=== PATIENT | male | born 1935 | race Caucasian/White ===

== ENCOUNTER 2019-06-13 21:24 | Inpatient (IN) | payer OTHER, MEDICARE ==
[~2019-06-13] VITALS: Ht 180.3 cm; Wt 80.7 kg
[2019-06-13] MEDS ORDERED: MEMANTINE HCL5 MG PO (21:48)
[2019-06-13] MEDS ORDERED: FLOMAX0.4 MG PO (21:49)
[2019-06-13] MEDS ORDERED: PROBIOTIC1 EAC1 PO (21:49)
[2019-06-13] MEDS ORDERED: QUETIAPINE FUMA25 MG PO (21:49)
[2019-06-13] MEDS ORDERED: WARFARIN SODIU2.5 MG PO (21:50)
[2019-06-13] MEDS ORDERED: ACETAMINOPHEN500 MG PO (21:51)
[2019-06-13] MEDS ORDERED: LEVEMIR FL100 UNIT/2 SUB-Q (21:53)
[2019-06-13] MEDS ORDERED: LEVOTHYROXINE75 MCG PO (21:54)
[2019-06-13] MEDS ORDERED: HUMALOG100 UNITS/ SUB-Q (21:54)
--- NOTE | 2019-06-14 02:40 | NUR ---
PT ARRIVED TO FLOOR VIA STRETCHER 0232. 4PA TO SLIDE PT ON DRAW SHEET TO BED. WHEN ROLLING PT TO REMOVE SHEETS UNDER HIM HE BECAME COMBATIVE AND STARTED KICKING AND SWINGING AT STAFF. PT SETTLED DOWN AND TUCKED INTO BED. THIS RN PLACE BP CUFF ON PT AND HE AGAIN BECAME AGITATED AND WOULD NOT CALM DOWN. UNABLE TO OBTAIN VS AT THIS TIME D/T PATIENT AGITATION AND SAFETY OF STAFF. PT'S IS IN ROOM WITH PT AT THIS TIME, CALL LIGHT IS CLOSE.
--- NOTE | 2019-06-14 03:30 | NUR ---
PT BENT HIS ARM AND IV IS BEEPING, PT'S WAS ABLE TO STRAIGHTEN ARM. IV IS NOW INFUSING.
--- NOTE | 2019-06-14 03:45 | NUR ---
PT'S IV WAS BEEPING, PT'S ASSISTED TO STRAIGHTEN HIS ARM. STARTED IV AND IT IS NOW INFUSING FINE.
--- NOTE | 2019-06-14 04:25 | NUR ---
IV CONTINUING TO BEEP FOR DISTAL OCCLUSION. ATTEMPTED TO ASSESS, PT RAISED ARM ABUPTLY TOWARDS THIS RN AND STATED, "GET THE HELL AWAY FROM ME, DON'T TOUCH ME". THIS RN ATTEMPTED TO EXPLAIN TO THE PT WHY I NEEDED TO SEE HIS IV. AT BEDSIDE ATTEMPTED TO CALM PT DOWN AND ASKED PT TO PLACE ARM STRAIGHT, HOWEVER, PT CONTINUED WITH INCREASED AGITATION AND TOLD HIS "GET THE HELL OUT OF THE ROOM, DON'T TOUCH ME". PT APPEARS VERY CONFUSED, AGITATED AND UPSET BY ANY NURSING INTERACTIONS INVOLVING DIRECT PT CARE. PT REFUSED MULTIPLE TIMES TO ALLOW THIS RN TO MOVE HIS ARM AND OR ASSESSS HIS IV SITE. PT STATED HE DID NOT WANT ANYONE TOUCHING HIM. THIS RN, CHARGE, RN YOLY AND DHAVAL AT BEDSIDE WITH ME PT HAS BEEN FREQUENTLY COMBATIVE TOWARDS STAFF THUS FAR IN SHIFT. STATES SHE CANNOT GET HIM TO LISTEN TO HER AND SINCE HIS FALL APPROX 1 WEEK AGO PT'S MENTATION HAS CHANGED AND HE IS EASILY AGITATED.
--- NOTE | 2019-06-14 05:23 | NUR ---
PT SLEEPING SOUNDLY, RESP EVEN AND NON LABORED. AT BEDSIDE. CALL LIGHT WITHIN REACH.
--- NOTE | 2019-06-14 05:25 | NUR ---
A&O TO SELF. AGITATED WITH STAFF AND . RA. IV FLUIDS/ABX. HEAVY ASSIST TRANSFER, UNABLE TO STAND UPON ADMIT TO THIS FLOOR. BED ALARM INTACT.
--- NOTE | 2019-06-14 07:43 | NUR ---
0715: Pt assisted back to his bed from the [facility]. He appears in no distress and denies pain at this time. His remains in the room with the pt and the bed alarm is on and the call martínez within reach.
--- NOTE | 2019-06-14 09:28 | NUR ---
PATIENT WAS ON CLEAR LIQ. HIS INTAKE WAS 400 ML. HE WENT NPO AROUND 7AM THIS MORNING.
--- NOTE | 2019-06-14 09:36 | NUR ---
PT RESTING IN HIS BED AND COMPLAINS OF SOME BACK PAIN AND WAS GIVEN A WARM BLANKET FOR IT. THE PT'S STATES THIS NORMAL FOR HIM BUT IS A BIT MORE SINCE HIS FALL AT HOME. THE FACE SCALE SHOWS A 3/10 WHICH THE PT'S DENIES ANY NEED FOR PAIN MEDICATION AT THIS TIME. SEE ASSESSMENT. CALL ANDERSON WITHIN REACH, BED ALARM IS ON, PT'S REMAINS AT THE BEDSIDE.
--- NOTE | 2019-06-14 09:36 | CONS ---
[facility] [address], [place] [address] Signed DATE OF CONSULTATION: 06/14/2019 CHIEF COMPLAINT: Generalized abdominal pain. HISTORY OF PRESENT ILLNESS: Thuan is an 84-year-old gentleman who unfortunately has worsening dementia over the last several weeks. His house in [place] to [place] [facility]. He more or less needs 24-hour observation at this point. About a week ago, he had fell and seemed to make his mental status worse. He has been combative as well. There was some concern about the generalized abdominal pain. This was 1 week ago. Apparently, there was no loss of consciousness. In the meantime, he went to see his primary care provider, Dr. Ambrosio Bernstein at the [facility]. He was examined and had him walk up and down the hallways, and apparently felt things were fine and no imaging studies have been ordered. His and caregivers brought him to the emergency room yesterday evening. In the emergency room, there was some concern he might have some mild abdominal tenderness. He is clearly demented. His white count was normal. His BUN and creatinine were elevated with a baseline creatinine around 1.5, now 2.15. INR was up at 3.1. Chest x-ray was unremarkable other than the aortic valve replacement. 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 CT scan of the pelvis shows a couple of pancreatic cyst in the diverticulosis without any evidence of inflammation. There seems to be a trace amount of pneumoperitoneum. Consequently, I was asked to admit him as a general surgeon on-call. He has been hydrated overnight, but he does get confused easily. Thankfully, his has been with him through the night. PAST MEDICAL HISTORY: Dementia, insulin-dependent diabetes, hypothyroidism, atrial fibrillation, hypertension, cholelithiasis, small hiatal hernia, diverticulosis, he had a pelvic fracture, clavicular fracture, and pneumothorax from a fall on his ladder in 2013. 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 He had a terrible ruptured appendix at age 9 and they were unsure he was going to live. He also had right inguinal hernia repair. SOCIAL HISTORY: Does not smoke or drink. He lives with his , who is age 67 at [phone]. She continues to work as a showcase maker. Dr. Ambrosio Bernstein is his primary care provider. They have moved out of their house in [place] down to [facility] here in [place], [place]. He needs quite a bit of observation throughout the day. They have two children. He no longer drives. Electronically Signed By: QUINTIN JULIAN MD 06/14/19 0936 PATIENT NAME: THUAN STINSON CONSULTATION DATE OF : 33 REPORT #: [id number] PHYSICIAN: QUINTIN JULIAN MD PCP: NO PRIMARY CARE PHYSICIAN REPORT IS CONFIDENTIAL AND NOT TO BE RELEASED WITHOUT AUTHORIZATION [facility] [address] [place], [place] [address] Signed FAMILY HISTORY: Not reviewed. REVIEW OF SYSTEMS: I went through 10 systems with his and she was very helpful. ALLERGIES: Opioids including morphine and also penicillin, sulfa, and trazodone. MEDICATIONS: Memantine, probiotic, quetiapine, Flomax, Coumadin, Tylenol, insulin, and levothyroxine. PHYSICAL EXAMINATION: VITAL SIGNS: Blood pressure is 137/50, heart rate 68, respiratory rate 16, temperature is 98.2, and he is 99% on room air. He is 5 feet 11 inches at 80 kg. GENERAL: Thuan is an 84-year-old gentleman lying supine in his hospital bed. His is in the room along with our nurse. He does not appear systemically ill or toxic. He is clearly demented and looks to his frequently for answers. He is easily reoriented and seems to be cooperative at this time, particularly with his present. He does not appear systemically ill or toxic. LUNGS: Generally clear to auscultation. HEART: Regular rate and rhythm with a metallic click. ABDOMEN: Soft and flat. There is some initial subjective mild tenderness diffusely, but he was easily distracted and did not seem to have any tenderness afterwards, certainly no peritonitis. I see his vertical right lower quadrant incision from an appendectomy when he was 9 years old. It is well healed at this time. No obvious hernia there. LABORATORY DATA: His white blood count is 7.7, neutrophils 73, and hemoglobin 12.7. BUN 62, creatinine 2.15, glucose 260. Urinalysis negative. INR is 2.1. Liver function tests are negative. Albumin is 3.8. IMAGING DATA: Chest x-ray shows the aortic valve replacement in his sternal wires. The CT scan of the head shows an old lacunar infarct and some mild ischemic changes, but nothing acute. CT scan of abdomen and pelvis shows the two pancreatic cysts along with diverticulosis, but no obvious inflammation and then trace pneumoperitoneum. ASSESSMENT AND PLAN: Thuan is an 84-year-old gentleman with clearly worsening dementia and having moved from his home to [employer]. Unfortunately, fell last week that seemed what made his mental status worse. At this point, it seems like his abdominal exam is relatively unremarkable. Although, the CT scan does show some trace pneumoperitoneum. It Electronically Signed By: QUINTIN JULIAN MD 06/14/19 0936 PATIENT NAME: THUAN STINSON CONSULTATION DATE OF : 33 REPORT #: [id number] PHYSICIAN: QUINTIN JULIAN MD PCP: NO PRIMARY CARE PHYSICIAN REPORT IS CONFIDENTIAL AND NOT TO BE RELEASED WITHOUT AUTHORIZATION [facility] [address] [place], [place] [address] Signed certainly could be from his diverticular disease. Would not be from an ulcer that would be within hours. He would have been in serious pain. His white count is normal and he has no fever. Overall, he seems fairly comfortable. I think at this point, we are going to keep him on conservative treatment. We will have our medical service see him to help with his medical management. I reviewed all this with his and in detail. Of course, he represents increased surgical risks it if he would need surgery. At this point, she would like him to be a full code, but no tube feeds and no heroic measures. They have expressed understanding and agreed above plan. Quintin Julian MD ALB/MODL /[id number] cc: MD Quintin Byrd MD Copies: AMBROSIO BERNSTEIN MD, ANDREW L MD ~ Electronically Signed By: QUINTIN JULIAN MD 06/14/19 0936 PATIENT NAME: THUAN STINSON CONSULTATION DATE OF : 33 REPORT #: [id number] PHYSICIAN: QUINTIN JULIAN MD PCP: NO PRIMARY CARE PHYSICIAN REPORT IS CONFIDENTIAL AND NOT TO BE RELEASED WITHOUT AUTHORIZATION
--- NOTE | 2019-06-14 09:47 | NUR ---
cbg 141.
--- NOTE | 2019-06-14 10:43 | NUR ---
PT HELPED BACK TO BED FOLLOWING ATTEMPTING TO HAVING A BM WITH NO SUCCESS. RT AT BEDSIDE DOING AN EKG AT THIS TIME.
--- NOTE | 2019-06-14 12:37 | NUR ---
patient is requesting a second opinion on the reading of the CT scan. They signed a release of information and were given the ct scan results. called hector in ct to see if Dr Pompa would read it and was informed they don't do that unless the doctor requests it.
--- NOTE | 2019-06-14 13:10 | NUR ---
SPOKE WITH PATIENT AND IN ROOM. PATIENT UP IN CHAIR. PATIENT HAS DEMENTIA AND IS NOT ABLE TO ANSWER QUESTIONS. PATIENT IS VERY TALKATIVE THOUGH AND ENJOYS VISITING, BUT WORDS ARE SCRAMBLED AND WITHOUT STRUCTURE IN SENTENCES MOSTLY. IS ABLE TO ANSWER QUESTIONS. PATIENT WAS A ADMISSIONS COUNSELOR. THEY BOTH LIVE IN APARTMENT AT [facility], SHE STILL WORKS, AND HE STAYS WITH THE [employer]. SHE DRIVES. HIS PCP IS IN [place] [place]. IT IS THEIR INTENTION TO RETURN THERE AT DISCHARGE. SHE STATES HE DOES NOT USE DME FOR AMBULATION YET. SHE STATES HE GETS AROUND WELL IN HIS OWN ENVIRONMENT. SHE DENIES NEEDS AT THIS TIME FOR DISCHARGE. SHE WILL LET STAFF KNOW IF SOMETHING COMES UP SHE IS CONCERNED ABOUT. WILL FOLLOW NEEDED.
--- NOTE | 2019-06-14 13:24 | NUR ---
PT RESTING IN HIS CHAIR WITH HIS FEET ELEVATED AND HE APPEARS COMFORTABLE AND DENIES ANY PAIN AT THIS TIME.
--- NOTE | 2019-06-14 16:37 | NUR ---
Pt had a medium formed stool and was helped back to his bed. Bed alarm is on.
--- NOTE | 2019-06-14 16:41 | NUR ---
Pt resting in his bed with no complaints of pain or nausea. Pt's remains in the room with the pt.
--- NOTE | 2019-06-14 17:09 | EKG ---
[facility] [address] [facility] [place] [address] Signed Atrial fibrillation with premature ventricular or aberrantly conducted complexes Possible Anterior infarct , age undetermined Abnormal ECG No previous ECGs available Confirmed by ELOY LEDEZMA MD ([id number]) on 06/14/2019 5:09:40 PM Electronically Signed By: ELOY LEDEZMA MD 06/14/19 1709 PATIENT NAME: THUAN STINSON Electrocardiogram DATE OF : 33 PHYSICIAN: ELOY LEDEZMA MD REPORT #: [id number] REPORT IS CONFIDENTIAL AND NOT TO BE RELEASED WITHOUT AUTHORIZATION
--- NOTE | 2019-06-14 17:10 | EKG ---
[facility] [address] [facility] [place] [address] Signed Atrial fibrillation with premature ventricular or aberrantly conducted complexes Abnormal ECG When compared with ECG of 13-JUN-2019 21:58, (Unconfirmed) Nonspecific T wave abnormality no longer evident in Inferior leads Confirmed by ELOY LEDEZMA MD ([id number]) on 06/14/2019 5:10:22 PM Electronically Signed By: ELOY LEDEZMA MD 06/14/19 1710 PATIENT NAME: THUAN STINSON Electrocardiogram DATE OF : 33 PHYSICIAN: ELOY LEDEZMA MD REPORT #: [id number] REPORT IS CONFIDENTIAL AND NOT TO BE RELEASED WITHOUT AUTHORIZATION
--- NOTE | 2019-06-14 17:24 | NUR ---
MED REC COMPLETED USING FACILITY MAR AND INTERVIEW WITH PATIENT'S .
--- NOTE | 2019-06-14 19:35 | NUR ---
SHIFT REPORT RECIEVED FROM ANDRES MENCHACA. PT RESTING IN BED, EYES CLOSED. RR 16, EVEN, UNLABORED. IN ROOM, CALL LIGHT IN REACH, BED RAILS UP, BED ALARM ON.
--- NOTE | 2019-06-14 20:34 | NUR ---
CAGE MANAGER ROUNDING NOTE. PT RESTING IN BED WITH EYES CLOSED. DOES NOT WAKE WHILE FATBACK TRIMMER IN ROOM. PT'S SLEEPING ON COUCH. CALL LIGHT IN REACH. WHITE BOARD UDPATED.
--- NOTE | 2019-06-14 21:28 | NUR ---
PT AWAKE IN BED, IN ROOM. PT ORIENTED TO PERSON BUT NOT PLACE, TIME OR EVENT. RAILS UP, BED ALARM ON. PT DENIES PAIN OR NAUSEA. EDMEA NOTED BLE, GENERALIZED. ABRASIONON LEFT KNEE. BRIEFS IN PLACE. IV CDI, WNL, FLUSHED WELL, WRAPPED WITH GAUZE ROLL AND KOBAN. NO OTHER NEEDS, CALL LIGHT IN REACH.
--- NOTE | 2019-06-14 22:29 | NUR ---
IV PUMP ALARMING. ARM UNWRAPPED. IV CDI, WNL, FLUSHED WELL. ARM WRAPPED IN TOWEL AND KOBAN. ALARM RESOLVED. NO OTHER NEEDS. CALL LIGHT IN REACH, IN ROOM.
--- NOTE | 2019-06-15 00:17 | NUR ---
PT RESTING IN BED, EYES CLOSED. RR 16, EVEN, UNLABORED. IN ROOM. CALL LIGHT IN REACH.
--- NOTE | 2019-06-15 02:23 | NUR ---
PT RFESTING IN BED, EYES CLOSED. RR 18, EVEN, UNLABORED. IN ROOM. CALL LIGHT IN REACH.
--- NOTE | 2019-06-15 04:28 | NUR ---
PT CALLS FOR ASSISTANCE. PT ASSISTED TO THE BR AND BACK TO BED. ATTENDS IN PLACE. PT ORIENTED TO PERSON ONLY. PT SLIGHTLY IRRITABLE. ASSESSMENT COMPLETED. NEW BAG OF IV FLUIDS PROVIDED. WARM BLANKETS PROVIDED TO PT AND . IV SITE RE-WRAPPED AFTER ASSESSMENT. NO OTHER NEEDS, CALL LIGHT IN REACH, BED ALARM ON, RAILS UP.
--- NOTE | 2019-06-15 05:17 | NUR ---
PT HAS SLEPT OFF AND ON THIS SHIFT. PT HAS BEEN CONFUSED TO ALL BUT PERSON. STAYED IN ROOM. IV COVERED WITH A TOWEL WRAPPED IN MARI BANDAGE. IV CDI, WNL, FLUSHED WELL. PT TOLERATED MEDS AND IV FLUIDS WELL. GENERALIZED EDEMA IN BLE. VSS, UO SUFFICIENT. PT COMPLAINS OF LOWER BACK PAIN, HE AND DECLINE PAIN MEDS. CBG MANAGED WITH PRN INSULIN. BED ALARMS AND RAILS USED FOR SAFETY.
--- NOTE | 2019-06-15 06:07 | NUR ---
PT RESTING IN BED, EYES CLOSED. RR 14, EVEN, UNLABORED. IN ROOM. CALL LIGHT IN REACH, RAILS UP, BED ALARM ON.
--- NOTE | 2019-06-15 06:31 | NUR ---
SCHEDULED MED PROVIDED. NO OTHER NEEDS, CALL LIGHT IN REACH. BED ALARM ON, RAILS UP.
--- NOTE | 2019-06-15 07:42 | NUR ---
0658: Report recieved from Aura MENCHACA. Pt sleeping at this time, bed alarm is on.
--- NOTE | 2019-06-15 08:56 | NUR ---
PT RESTING IN HIS CHAIR WATCHING CARTOONS WITH HIS . HE APPEARS IN NO DISTRESS AND DENIES ANY PAIN. CALL ANDERSON WITHIN REACH. BED ALARM TO BE PLACED.
--- NOTE | 2019-06-15 09:05 | NUR ---
FAMILY AND PATIENT REFUSED THE CHAIR ALARM THE NURSE RECCOMENDED WILL INFORM NURSE, AND LEFT ALARM IN ROOM
--- NOTE | 2019-06-15 09:53 | NUR ---
CAME IN TO DO PATIENT'S VITALS AND I AND O. HIS NEEDED TO GO TO HER CAR AND GET SOME THINGS SO SHE ASKED ME IF I COULD STAY A FEW MINUTES TO WATCH HIM UNTIL SHE GOT BACK. PATIENT IS SLEEPING. HE MIGHT DO A SHOWER SOMETIME THIS AFTERNOON.
--- NOTE | 2019-06-15 10:31 | NUR ---
PT RESTING IN BED WITH NO COMPLAINTS. HIS REMAINS IN THE ROOM AND IS ASSISTING HIM IN ORDERING LUNCH AT THIS TIME.
--- NOTE | 2019-06-15 13:26 | NUR ---
PT WORKING WITH PHYSICAL THERAPY AT THIS TIME.
--- NOTE | 2019-06-15 13:46 | NUR ---
PT RESTING IN HIS CHAIR WITH THE ALARM ON AND HIS IN THE ROOM. PT APPEARS IN NO DISTRESS AND DENIES ANY PAIN. HE ATE ABOUT 95% OF HIS REGULAR DIET LUNCH WITHOUT ANY COMPLICATIONS. ABD SOUNDS ARE ACTIVE IN ALL QUADS AT THIS TIME. SEE ASSESSMENT.
--- NOTE | 2019-06-15 17:58 | NUR ---
Pt becoming agitated with staff and his . He was moved from the chair and right away wanted back to his chair which was done. Pt unable to state any problems but did settle down with some pudding which his states he likes. Pt medicated as ordered, see chelsir.
--- NOTE | 2019-06-15 18:14 | NUR ---
PT AGAIN BECAME AGITATED AND IS PULLING ON HIS IV. WHEN ASKED IF I CAN HELP HIM AND ATTEMPTED TO REWRAP HIS IV HE YELLS AT ME TO NOT TOUCH HIM. THE PT'S ATTMEPTED TO CALM HIM DOWN AND HE YELLED AT HER THAT HE "HATE IT WHEN YOU DO THAT". PT GOT UP AND FAILS HIS ARMS AND AGAIN YELLS TO LEAVE HIM ALONE. PT NOW WALKING IN THE HALLS WITH ANOTHER STAFF MEMBER AND HIS . PT WAS GIVEN HIS SEROQUEL NIGHTLY DOSE AND DR SU WAS CALLED AND NOTIFIED WELL DR JULIAN. PT CONITINUES AMBULATING IN THE HALLS AT THIS TIME. WILL CONTINUE TO MONITOR.
--- NOTE | 2019-06-15 18:51 | NUR ---
PT NOW SITTING ON HIS BEDSIDE AND IS NO LONGER YELLING AND APPEARS TO BE CALMING DOWN. PT'S REMAINS AT THE BEDSIDE.
--- NOTE | 2019-06-15 19:06 | NUR ---
DIDN'T GET PATIENT'S SIX O CLOCK VITALS DO TO HIM BEING AGITATED. NURSE AND CHARGE NURSE NOTIFIED.
--- NOTE | 2019-06-15 19:11 | NUR ---
WE HAD A PLAN DO GET HIM IN THE SHOWER TODAY AND WE LEFT UP TO HIM. I DID ASK A COUPLE OF TIMES.
--- NOTE | 2019-06-15 19:30 | NUR ---
pt's CALLED, REPORTED THAT pt IS HAVING PAIN. pt RESTLESS IN BED. COMPLAINING ABOUT HIS STOMACH. WILL CALL MD FOR PO PAIN MEDS.
--- NOTE | 2019-06-15 19:45 | NUR ---
CALLED DR JULIAN UPDATED ON STATUS, ORDERED PO TYLENOL. NEW ORDER ENTERED.
--- NOTE | 2019-06-15 19:50 | NUR ---
pt SITTING ON SIDE OF BED, AGITATED. UNABLE TO GIVE DATE OF . YELLING AT , MORELIA. MORELIA AGREED TO LEAVE THE ROOM. pt CALMED DOWN. PO MEDICATION GIVEN. BLOOD SUGAR CHECKED. IV MED GIVEN FOR NAUSEA. ASSESSMENT DONE. VITALS RECORDED. pt UP AND AMBULATING IN THE [place] FOR A FEW LAPS.
--- NOTE | 2019-06-15 20:10 | NUR ---
SPOKE WITH . AGREEABLE TO LEAVE FOR A FEW HOURS TO SEE IF IT WILL HELP CALM THE pt. DISCUSSED DEMENTIA AND CHANGES SEEN WHEN PATIENTS ARE IN THE HOSPITAL. ALL QUESTIONS ANSWERED. pt CONTINUES TO YELL AT EVERYTIME HE SEE'S HER. pt 1:1 WITH STAFF MEMBER.
--- NOTE | 2019-06-15 20:54 | NUR ---
ASSISTANT MANAGER/EMBALMER ROUNDING NOTE. ANNETTECARLIE AMBULATED WITH PT IN THE MIRAMONTES. PT REPORTS FEELING TIRED. PT'S HAS GONE HOME TO REST FOR A COUPLE OF HOURS. PT EXPRESSES FRUSTRATION WITH HIS , EASILY REDIRECTABLE. PT WALKED TO HIS ROOM. ASSISTED TO LAY DOWN IN BED. PT FELL ASLEEP EASILY. BED ALARM IN PLACE. CALL LIGHT IN REACH. WHITE BOARD UPDATED.
--- NOTE | 2019-06-15 22:06 | NUR ---
CALLED FOR AN UPDATE. MORELIA STATED "I THINK I WON'T STAY THE NIGHT" ALL QUESTIONS ANSWERED.
--- NOTE | 2019-06-15 22:34 | NUR ---
THIS RN IN TO SIT 1:1 WITH pt. pt SWITCHING SUBJECTS MID SENTENCE. CONCERNED ABOUT CLEANING THINGS. LAYING IN BED. WARM BLANKET APPLIED TO KNEE. pt COMPLAINED OF PAIN EARLIER BUT NOW DENIES PAIN. BED ALARM ON. LIGHTS DIMMED FOR COMFORT.
--- NOTE | 2019-06-15 23:17 | NUR ---
ANDRES RN IN TO RELIEVE THIS RN FOR 1:1. pt SITTING ON COUCH FOLDING CLOTH. REPORTED BEING TIRED BUT DOES NOT WANT TO GO TO BED A THIS TIME.
--- NOTE | 2019-06-15 23:40 | NUR ---
THIS RN TO ROOM FOR 1:1. pt RESTING IN BED. RESTLESS. UP TO VOID. LARGE VOID. BACK TO BED. SETTLED. WARM BLANKET APPLIED. BED ALARM ON.
--- NOTE | 2019-06-16 00:30 | NUR ---
pt RESTING IN BED, BED ALARM ON.
--- NOTE | 2019-06-16 02:00 | NUR ---
PATIENT IS SLEEPING.
--- NOTE | 2019-06-16 03:20 | NUR ---
pt USED CALL LIGHT "I'M WORKING!" THIS RN TO ROOM. pt ATTEMPTING TO GET OUT OF BED. STATED "I DON'T KNOW WHERE ALL THE WATER IS COMING FROM" BED SATURATED, DEPENDS SATURATED. pt BATHED. BED CLEANED, FRESH LINENS. pt ABLE TO SIT ON TOILET AND VOID. BACK TO BED. WARM BLANKET APPLIED. BED ALARM ON. CALL LIGHT WITHIN REACH.
--- NOTE | 2019-06-16 05:00 | NUR ---
pt CALLED. ATTEMPTING TO GET OUT OF BED. pt WOULD NOT BE PURSUADED TO USE TO TOILET OR TO TAKE HIS MEDICATIONS OR VITALS. WALKED WITH pt IN THE MIRAMONTES. pt ADAMENT THAT THIS BUILDING BELONGED TO HIM "DO YOU PAY RENT? THIS IS NOT WHAT THIS BUILDING WAS MEANT TO BE. IT WAS SUPPOSED TO BE A PLACE WHERE FAMILIES COULD DO... THE THING!" pt CONTINUED TO SPEAKING IN LOUDER TONES AND ENTER OTHER pts ROOMS. BERNARDA CAMPOS SITTING WITH pt 1:1.
--- NOTE | 2019-06-16 06:47 | NUR ---
LAB DRAW COMPLETED. pt RESTING IN CHAIR, EYES CLOSED,
--- NOTE | 2019-06-16 08:27 | NUR ---
DID PATIENT'S BLOOD SUGAR CHECK. PATIENT IS SITTING IN HIS CHAIR ASLEEP. BREAKFAST MEAL IN FRONT OF HIM.
--- NOTE | 2019-06-16 08:50 | NUR ---
PT SITTING IN HIS CHAIR EATING BREAKFAST AT THIS TIME AND HE APPEARS IN NO DISTRESS. CALL ANDERSON WITHIN REACH, IN THE ROOM AND CHAIR ALARM IS ON. ABD SOUNDS ACTIVE IN ALL QUADS.
--- NOTE | 2019-06-16 10:04 | DS ---
[facility] [address], [place] [address] Signed ADMISSION DATE: 06/14/2019 DISCHARGE DATE: 06/15/2019 FINAL DIAGNOSES: 1. Constipation. 2. Generalized abdominal pain. 3. Trace pneumoperitoneum. 4. Diverticulosis. PROCEDURES PERFORMED: 1. CT scan of abdomen and pelvis. 2. Chest x-ray. 3. CT head. HISTORY OF PRESENT ILLNESS: Thuan is an 84-year-old gentleman whose Alzheimer's dementia has been getting worse for the last few months. His moved him out of their [place] to [facility] here in [place], [place]. He has to be under 24-hour observation. His continues to work. She is age 66 currently. She has been very supportive. He had fallen about a week prior to admission. He had been to his primary care provider. He was examined and ambulated in the office, seemed to be doing fine. No radiographic studies were performed. He was allowed to go home. Later, he was complaining of some generalized abdominal pain. He was brought to the local emergency room by the [facility] staff and his . His vital signs were fine. His white count was normal, but the CT scan showed some trace pneumoperitoneum up around the stomach. There was no obvious perforated ulcer. He does have diverticulosis. CT scan of the head showed old issues and chest x-ray was unremarkable. I have been asked to admit him as a general surgeon on-call. HOSPITAL COURSE: Thuan was admitted as above and initially given some Rocephin and Flagyl. Overall, he did well during the day, but at night of course, he has sundown syndrome and even with the Seroquel, he had some troubles with that. He is very pleasant to talk to during the day. He tolerated his diet and actually had several good bowel movements. He has been ambulating around the hallways. His abdominal exam has remained quite benign. His white blood cell count has remained normal. His INR continues to run a little high just over 3 consistent with his metallic aortic valve replacement. EKG showed his atrial fibrillation. I have had multiple discussions with Thuan and his . I think at this point, he seems to be doing fine. We are going to allow him to go back home to [facility]. Electronically Signed By: QUINTIN BLAIR MD 06/16/19 1004 PATIENT NAME: THUAN STINSON DISCHARGE SUMMARY DATE OF : 33 REPORT #: [id number] PHYSICIAN: QUINTIN BLAIR MD PCP: NO PRIMARY CARE PHYSICIAN REPORT IS CONFIDENTIAL AND NOT TO BE RELEASED WITHOUT AUTHORIZATION [facility] [address], [place] [address] Signed DISCHARGE PLANS AND MEDICATIONS: Thuan is going to be discharged back to [facility] today. He can resume his regular diet. He can resume all his chronic medications. There has been no changes to his medications. He can shower and bathe as usual. His did ask about a support group. This is Monday, so we will leave a note for to give her a call and see if there is an Alzheimer's support group in the area. They can follow up in my office as needed. They can follow up with their primary care provider as usual. Quintin lBair MD ALB/MODL /[id number] cc: MD Chris Gonzalez MD Copies: QUINTIN BLAIR MD, MARK D MD ~ Electronically Signed By: QUINTIN BLAIR MD 06/16/19 1004 PATIENT NAME: THUAN STINSON DISCHARGE SUMMARY DATE OF : 33 REPORT #: [id number] PHYSICIAN: QUINTIN BLAIR MD PCP: NO PRIMARY CARE PHYSICIAN REPORT IS CONFIDENTIAL AND NOT TO BE RELEASED WITHOUT AUTHORIZATION
--- NOTE | 2019-06-16 10:26 | NUR ---
DISCHARGE INSTRUCTIONS GIVEN TO THE PT'S WITH UNDERSTANDING STATED. IV PULLED IN WHICH THE PT BECAME VERY UPSET AND HE STARTED HITTING. WITH THE AID OF THE PT'S AND STAFF THE IV WAS DC'D AND TIP INTACT. NO VITAL SIGNS WERE CHECKED DUE TO THE PT'S STATUS WHICH WAS CLEARED WITH DR KAISER.
--- NOTE | 2019-06-16 10:30 | NUR ---
STAFF NOTIFIED AT [facility] OF THE DISCHARGE. DC INSTRUCTIONS FOR [facility] SENT WITH THE PT'S .
--- NOTE | 2019-06-16 15:56 | NUR ---
BEFORE HE LEFT THIS MORNING. HE TOOK A QUICK SHOWER. PUT HIM IN A GOWN AND [facility] A RO[facility]. THE NURSE AND I WHEELED HIM OUT AND HELPED HIM GET IN HIS CAR.
== END 2019-06-16 10:49 | DRG 392 ==
LOC: ED 21:24 → MS 21:26
PROVIDERS: ADMIT Colon & Rectal Surgery
DX: K59.00 Constipation, unspecified (principal); K86.2 Cyst of pancreas; N17.9 Acute kidney failure, unspecified; F05 Delirium due to known physiological condition; K57.90 Diverticulosis of intestine, part unspecified, without perforation or abscess without bleeding; G30.9 Alzheimer's disease, unspecified; F02.80 Dementia in other diseases classified elsewhere, unspecified severity, without behavioral disturbance, psychotic disturbance, mood disturbance, and anxiety; E11.22 Type 2 diabetes mellitus with diabetic chronic kidney disease; I12.9 Hypertensive chronic kidney disease with stage 1 through stage 4 chronic kidney disease, or unspecified chronic kidney disease; K66.8 Other specified disorders of peritoneum; N18.9 Chronic kidney disease, unspecified; N40.0 Benign prostatic hyperplasia without lower urinary tract symptoms; E03.9 Hypothyroidism, unspecified; I48.91 Unspecified atrial fibrillation; Z95.2 Presence of prosthetic heart valve; Z88.5 Allergy status to narcotic agent; Z88.2 Allergy status to sulfonamides; Z88.0 Allergy status to penicillin; Z88.8 Allergy status to other drugs, medicaments and biological substances; Z79.01 Long term (current) use of anticoagulants; Z79.4 Long term (current) use of insulin; Z79.899 Other long term (current) drug therapy
CPT/HCPCS: 36415; 70450; 71045; 74176; 80048; 80053; 81001; 83735; 84100; 84134; 85025; 85610; 93005; 93010; 96361; 96374; 96375; 97112; 97116; 97162; 99285-25; C9113; G0378; J0610; J0696; J1815; J2405; J7030; J7121

== ENCOUNTER 2021-02-12 18:42 | Emergency (ER) | payer OTHER, MEDICARE ==
[~2021-02-12] VITALS: Ht 180.3 cm; Wt 84.2 kg
[~2021-02-12 18:42] MED LIST: ACETAMINOPHEN500 MG PO; FLOMAX0.4 MG PO; HUMALOG100 UNITS/ SUB-Q; LEVEMIR FL100 UNIT/2 SUB-Q; LEVOTHYROXINE75 MCG PO; MEMANTINE HCL5 MG PO; PROBIOTIC1 EAC1 PO; QUETIAPINE FUMA25 MG PO; WARFARIN SODIU2.5 MG PO
[2021-02-12] MEDS ORDERED: DONEPEZIL HCL10 MG PO (19:22)
[2021-02-12] MEDS ORDERED: LOSARTAN POTASS50 MG PO (19:22)
== END 2021-02-12 22:40 | disposition home or self-care (01) ==
LOC: ED 18:42
DX: U07.1 COVID-19 (principal); E11.9 Type 2 diabetes mellitus without complications; I10 Essential (primary) hypertension; E03.9 Hypothyroidism, unspecified; Z79.4 Long term (current) use of insulin; I48.91 Unspecified atrial fibrillation; Z88.0 Allergy status to penicillin; Z88.2 Allergy status to sulfonamides; Z88.5 Allergy status to narcotic agent; Z79.01 Long term (current) use of anticoagulants; Z79.899 Other long term (current) drug therapy
CPT/HCPCS: 99283-25; M0243; Q0244

== ENCOUNTER 2021-05-03 08:26 | Inpatient (IN) | payer OTHER, MEDICARE ==
[~2021-05-03] VITALS: Ht 180.3 cm; Wt 84.6 kg
[~2021-05-03 08:26] MED LIST changes: +DONEPEZIL HCL10 MG PO; +LOSARTAN POTASS50 MG PO
[2021-05-03] MEDS ORDERED: HYDROCHLOROTH12.5 M1 PO (08:54)
[2021-05-03] MEDS ORDERED: JALYN 0.5-0.41 EACH PO (08:54)
[2021-05-03] MEDS ORDERED: LEVEMIR100 UNIT/1 SUB-Q (08:54)
[2021-05-03] MEDS ORDERED: QUETIAPINE FUMA50 M1 PO (08:55)
[2021-05-03] MEDS ORDERED: BENZONATATE100 MG PO (08:56)
[2021-05-09] MEDS ORDERED: MEMANTINE HCL10 MG PO (12:48)
[2021-05-17] MEDS ORDERED: TAMSULOSIN HCL0.4 MG PO (15:05)
[2021-05-17] MEDS ORDERED: DONEPEZIL HCL10 MG PO (15:05)
[2021-05-17] MEDS ORDERED: AMLODIPINE BESY10 MG PO (15:06)
[2021-05-17] MEDS ORDERED: QUETIAPINE FUMA25 MG PO (15:06)
[2021-05-17] MEDS ORDERED: WARFARIN SODIU2.5 MG PO (15:06)
[2021-05-17] MEDS ORDERED: ACETAMINOPHEN500 MG PO (15:06)
[2021-05-17] MEDS ORDERED: STIMULANT LAXA1 EACH PO (15:07)
[2021-05-17] MEDS ORDERED: BENZONATATE100 MG PO (15:07)
[2021-05-17] MEDS ORDERED: MEMANTINE HCL5 MG PO (15:07)
[2021-05-17] MEDS ORDERED: HUMALOG100 UNITS/ SUB-Q (15:08)
[2021-05-17] MEDS ORDERED: SEMGLEE100 UNIT/1 SUB-Q (15:08)
[2021-05-17] MEDS ORDERED: LEVOTHYROXINE75 MCG PO (15:09)
== END 2021-05-18 13:05 | disposition home or self-care (01) | DRG 871 ==
LOC: ED 08:26 → CCU 15:45 → MS 15:45
PROVIDERS: ADMIT Internal Medicine; ATTEND Internal Medicine
DX: A41.9 Sepsis, unspecified organism (principal); G93.41 Metabolic encephalopathy; N17.9 Acute kidney failure, unspecified; N13.6 Pyonephrosis; R65.20 Severe sepsis without septic shock; F02.81 Dementia in other diseases classified elsewhere, unspecified severity, with behavioral disturbance; E03.9 Hypothyroidism, unspecified; L89.152 Pressure ulcer of sacral region, stage 2; Z20.822 Contact with and (suspected) exposure to COVID-19; Z95.2 Presence of prosthetic heart valve; I12.9 Hypertensive chronic kidney disease with stage 1 through stage 4 chronic kidney disease, or unspecified chronic kidney disease; E11.22 Type 2 diabetes mellitus with diabetic chronic kidney disease; G30.9 Alzheimer's disease, unspecified; Z88.2 Allergy status to sulfonamides; Z88.0 Allergy status to penicillin; Z88.5 Allergy status to narcotic agent; Z88.8 Allergy status to other drugs, medicaments and biological substances; Z79.899 Other long term (current) drug therapy; Z79.4 Long term (current) use of insulin; Z79.01 Long term (current) use of anticoagulants; Z87.891 Personal history of nicotine dependence
CPT/HCPCS: 51702; 71045; 74176; 74230; 76775; 80048; 80053; 81001; 82565; 83036; 83605; 84520; 85025; 85610; 87040; 92526; 92610; 92611; 97110; 97116; 97163; 97167; 97530; 97535; 99285-25; A9270; C9803; J0696; J1815; J3480; J7121; U0003